=== PATIENT | female | born 1990 | race Caucasian/White ===

== ENCOUNTER 2024-02-12 04:05 | Day surgery (SDC) | payer OTHER ==
[2024-02-12] VITALS (238 sets, daily range): BP systolic 62–127; BP diastolic 13–92
--- NOTE | 2024-02-12 07:00 | NUR ---
PATIENT AMBULATORY TO ROOM. PATIENT IS ALERT AND ORIENTED X3. VS OBTAINED. CONSENTS OBTAINED. DR MARTINEZ NOTIFED. ORDERS RECEIVED. PATIENT MEDICATED PER MD ORDERS. ADMISSION ASSESSMENT COMPLETED AT THIS TIME. IV ESTABLISHED. WILL CONTINUE TO MONITOR.
[2024-02-12] MEDS ORDERED: diazePAM 5 MG/TAB PO PRN ×2 (07:30→08:30)
[2024-02-12] MEDS ORDERED: CYANOCOBALAMIN 500 MCG/TAB ( B12) PO PRN (07:30)
[2024-02-12] MEDS ORDERED: SCOPOLAMINE 1.5 MG DIS TD PRN (07:30)
[2024-02-12] MEDS ORDERED: cloNIDine HCL 0.1 MG/TAB PO PRN (07:30)
[2024-02-12] MEDS ORDERED: FAMOTIDINE 20 MG/TAB PO PRN (07:30)
[2024-02-12] MEDS ORDERED: PANTOPRAZOLE SODIUM Sesquihydr 40 MG/TAB PO PRN (07:30)
[2024-02-12] MEDS ORDERED: ALBUTEROL SULFATE 2.5 MG VIAL IN PRN (07:30)
[2024-02-12] MEDS ORDERED: LACTATED RINGER'S 1,000 ML IV PRN ×3 (07:30→19:00)
[2024-02-12] MEDS ORDERED: ASCORBIC ACID 4,000 MG in SODIUM CHLORIDE 0.9% 1,000 ML IV SCH (08:00)
[2024-02-12 08:03] LABS: BASO% 0.2 % (0-3); EOS% 2.6 % (0-8); HEMATOCRIT 37.9 % (37.0-47.0); HEMOGLOBIN 12.7 g/dl (12.0-16.0); IMMATURE GRANULOCYTES 0.2 % (0.0-5.0); LYMPH% 48.4 % (15-41); MEAN CELL VOLUME 96.4 fL CALC (80.0-100.0); MEAN CORPUSCULAR HGB 32.3 pG CALC (26.0-32.0); MEAN CORPUSCULAR HGB CONC 33.5 g/dL CAL (32.0-36.0); MONO% 6.1 % (2-13); NEUT# 2.6 thou/uL (2.00-7.15); NEUT% 42.5 % (42-76); RED BLOOD COUNT 3.93 mill/uL (4.20-5.60); RED CELL DISTRI WIDTH 12.7 % (11.5-15.5)
[2024-02-12] MEDS ORDERED: ZOFRAN4 MG/TAB PO (08:21)
[2024-02-12 08:38] LABS: ALBUMIN 3.7 g/dL (3.2-5.0); BILIRUBIN, TOTAL 0.2 mg/dL (0.02-1.3); CREATININE 0.9 mg/dL (0.5-1.0); TOTAL PROTEIN 6.1 g/dL (6.3-8.2)
[2024-02-12] MEDS ORDERED: SUCCINYLCHOLINE CHLORIDE 20 MG/ML 10ML VIAL IV PRN (09:00)
[2024-02-12] MEDS ORDERED: LIDOCAINE HCL 1% (10MG/ML) 100 MG/10 ML MDV VT PRN ×2 (09:00)
[2024-02-12] MEDS ORDERED: MIDAZOLAM HCL 2 MG/2 ML VIAL IV PRN (09:00)
[2024-02-12] MEDS ORDERED: PROPOFOL 10 MG/ML 100ML VIAL IV PRN (09:00)
[2024-02-12] MEDS ORDERED: cloNIDine HYDROCHLORIDE 100 MCG/ML 10 ML INJ IV PRN (09:00)
[2024-02-12] MEDS ORDERED: NALTREXONE HCL 50 MG/TAB VT PRN (09:00)
[2024-02-12] MEDS ORDERED: diazePAM 5 MG/TAB VT PRN (09:00)
[2024-02-12] MEDS ORDERED: MAGNESIUM SULFATE HEPTAHYDRATE 100 ML IV PRN (09:00)
[2024-02-12] MEDS ORDERED: PROPOFOL 100 ML IV PRN (09:00)
[2024-02-12] MEDS ORDERED: OCTREOTIDE ACETATE 100 MCG/VIAL SDV SC PRN (09:00)
[2024-02-12] MEDS ORDERED: DiphenhydrAMINE HCL 50 MG/ML SDV IV PRN (09:00)
[2024-02-12] MEDS ORDERED: LIDOCAINE HCL 1% (10MG/ML) 100 MG/10 ML MDV IV PRN (09:00)
[2024-02-12] MEDS ORDERED: DEXAMETHASONE SODIUM PHOSPHATE PF 10 MG/ML SDV IV PRN ×2 (09:00→19:00)
[2024-02-12] MEDS ORDERED: ROCURONIUM BROMIDE 10 MG/ML 5ML VIAL IV PRN (09:00)
[2024-02-12] MEDS ORDERED: ONDANSETRON HCl 4 MG/2 ML SDV IV PRN ×3 (09:00→19:00)
[2024-02-12] MEDS ORDERED: STERILE WATER FOR IRRIGATION 1,000 ML BTL IR PRN (09:00)
[2024-02-12] MEDS ORDERED: cloNIDine HCL 0.1 MG/TAB VT PRN (09:00)
[2024-02-12] MEDS ORDERED: THIAMINE HCL 100 MG/ML 2ML VIAL IV PRN (09:00)
[2024-02-12] MEDS ORDERED: POTASSIUM CHLORIDE 20 MEQ/100 ML BAG IV PRN (09:00)
--- NOTE | 2024-02-12 09:30 | NUR ---
rt at bedside for ekg
--- NOTE | 2024-02-12 10:15 | NUR ---
dr jean at bedside at this time
--- NOTE | 2024-02-12 11:20 | NUR ---
Induction Note Time out performed at 1120. Patient placed on monitors, Aron hugger, bilateral wrist restraints applied for ET tube protection. Versed 5mg given IV push at 1120 Tourniquet applied to LEFT arm Lidocaine 100mg given [id number] IV push followed by Rocoronium 10mg at 1122 IV push and held for 90 seconds. Propofol bolus of 120mg given at 1123 IV push. Succinylcholine 80mg given IV push at 1125. Smooth intubation with 7.5 ETT. Positive CO2. Positive Auscultation for air exchange. Patient placed on ventilator for spontaneous ventilation. Placed on Propofol IV drip at 1126. OG inserted. Positive air on auscultation. Positive gastric content. Stomach washed at this time.
--- NOTE | 2024-02-12 11:40 | NUR ---
OG close note Stomach washed at this time. Naltrexone 50 mg via OG tube. OG will be clamped for 45 minutes.
[2024-02-12] MEDS ORDERED: PHENYLEPHRINE HCL 10 MG in SODIUM CHLORIDE 0.9% 250 ML IV PRN (12:10)
--- NOTE | 2024-02-12 12:25 | NUR ---
OG open note OG open at this time. Gastric content draining into drainage bag. OG to drain for 45 minutes. Propofol will be titrated down based on patient.
--- NOTE | 2024-02-12 13:10 | NUR ---
OG close note Stomach washed at this time. Naltrexone 50 mg with Clonidine 0.1 mg via OG tube. OG will be clamped for 45 minutes.
--- NOTE | 2024-02-12 14:40 | NUR ---
OG close note Stomach washed at this time. Naltrexone 50 mg with Clonidine 0.1 mg via OG tube. OG will be clamped for 45 minutes.
--- NOTE | 2024-02-12 16:45 | NUR ---
OG close note Stomach washed at this time. Naltrexone 25 mg with Clonidine 0.1 mg via OG tube. OG will be clamped for 45 minutes.
[2024-02-12] MEDS ORDERED: KETOROLAC TROMETHAMINE 30 MG/ML SDV IV SCH (17:00)
[2024-02-12] MEDS ORDERED: LIDOCAINE HCL 1% (10MG/ML) 100 MG/10 ML MDV IV SCH (17:00)
[2024-02-12] MEDS ORDERED: ACETAMINOPHEN 1,000 MG/100 ML VIAL IV SCH (17:00)
--- NOTE | 2024-02-12 17:15 | NUR ---
OG open note OG open at this time. Gastric content draining into drainage bag. OG to drain for 15 minutes. Propofol will be titrated down based on patient.
--- NOTE | 2024-02-12 18:00 | NUR ---
Extubation note Closing medications given Benadryl 50mg IV push, Decadron 10mg IV push,Magnesium 4 grams IV, Zofran 8mg IV push, Octreotide 100mcg SC. Stomach washed out prior to extubation. Suctioned gastric content. OG removed. Patient extubated. Propofol Discontinued. Wrist restraints removed. Aron hugger Removed. See ANR Moderate sedate recovery record for further notes and assessment.
[2024-02-12] MEDS ORDERED: NALTREXONE50 MG PO (18:27)
[2024-02-12] MEDS ORDERED: CLONIDINE0.1 MG PO (18:27)
[2024-02-12] MEDS ORDERED: KLONOPIN2 MG PO (18:28)
--- NOTE | 2024-02-12 18:40 | NUR ---
patient to [facility] via bed. patient resting comfortably. vss. phoned mother provided update.
[2024-02-12] MEDS ORDERED: PROMETHAZINE HCL 25 MG in SODIUM CHLORIDE 0.9% 50 ML IV PRN (19:00)
[2024-02-12] MEDS ORDERED: KETOROLAC TROMETHAMINE 30 MG/ML SDV IV PRN (19:00)
[2024-02-12] MEDS ORDERED: ACETAMINOPHEN 1,000 MG/100 ML VIAL IV PRN (19:00)
[2024-02-12] MEDS ORDERED: PROMETHAZINE HCL 12.5 MG in SODIUM CHLORIDE 0.9% 50 ML IV PRN (19:00)
[2024-02-12] MEDS ORDERED: ACETAMINOPHEN 500 MG TAB PO PRN (19:00)
[2024-02-12] MEDS ORDERED: LORazepam 2 MG/ML IV PRN ×2 (19:00)
[2024-02-12] MEDS ORDERED: HALOPERIDOL LACTATE 5 MG/ML SDV IV PRN (19:00)
--- NOTE | 2024-02-12 20:00 | NUR ---
RECEIVED REPORT FROM ANR NURSE. PT NOTED LAYING IN BED, SUPINE ON RM AIR. PT IS CONTINUING TO SIT UP IN BED AND THEN LAY BACK DOWN. PT NOT GIVING ANY VERBAL REPONSES AT THIS TIME OR OPEN EYES BUT DOES FOLLOW COMMANDS WHEN REDIRECTED TO LAY BACK DOWN AND REST. PT IS BECOMING SLIGHTLY AGITATED HOWEVER, TOSSING AND TURNING IN BED. NOT ABLE TO LAY STILL. WILL FOLLOW UP WITH MEDICATION PER EMAR FRO AGITATION. NURSING ASSESSMENT COMPLETED. IV SITE APPEARS HEALTHY AND INTACT WITH FLUIDS RUNNING PER EMAR. BED ALARM ON AND SAFETY PRECAUTIONS IN PLACE.
[2024-02-12] MEDS ORDERED: PATIENT' OWN MED CONTROLLED 1 EA DOSE IV PRN (21:00)
--- NOTE | 2024-02-12 21:24 | NUR ---
PT BED ALARM GOING OFF, DIRECTOR OF PERSONNEL AND BELT KNIFE FEEDER ENTERED ROOMA ND PT WAS SITTING UP ON SIDE OF BED BETWEEN GAURD RAIL AND LOWER BED FRAME. PT IMMEDIATLY LAID BACK DOWN UPON STAFF ENTRY. ASKED PT IF THEY NEEDED TO USE THE BATHROOM, PT REPLIED YES. DIRECTOR OF PERSONNEL AND BELT KNIFE FEEDER ASSISTED WITH STAND AND PIVOTING PT ONTO BSC, PT VOIDED WITHOUT DIFFICULTY. ASSISTED BACK INTO BED. PT WAS UNABLE TO KEEP EYES OPEN AND VERBAL RESPONSES ARE MINIMAL AT THIS TIME. GAIT WAS UNSTEADY AND REQUIRED X2 ASSIST. PT LAYING SUPINE IN BED, FLUIDS RUNNING PER EMAR. BED ALARM ON AND SAFETY PRECAUTIONS IN PLACE. NO S/S OF DISTRESS.
--- NOTE | 2024-02-12 22:04 | NUR ---
PT HAD AN EPISODE OF VOMITTING, ABOUT 100CC OF GREEN/YELLOW OUTPUT. ADMINSITERED MEDICATION FOR VOMITTING PER EMAR. PT LAYING IN BED ON LEFT SIDE, RESTING AT THIS TIME. BED ALARM ON AND SAFETY PRECAUTIONS IN PLACE.
[2024-02-12] MEDS ORDERED: clonazePAM 1 MG/TAB PO PRN (23:00)
[2024-02-12] MEDS ORDERED: cloNIDine HCL 0.1 MG/TAB PO SCH (23:00)
--- NOTE | 2024-02-13 | NUR ---
PT LAYING IN BED ON LEFT SIDE, SLEEPING. NO S/S OF DISTRESS AT THIS TIME. BED ALARM ON AND SAFETY PRECAUTIONS IN PLACE.
[2024-02-13] MEDS ORDERED: clonazePAM 1 MG/TAB PO PRN ×2 (04:00→08:00)
[2024-02-13] MEDS ORDERED: NALTREXONE HCL 50 MG/TAB PO SCH ×2 (04:00→08:30)
[2024-02-13] MEDS ORDERED: cloNIDine HCL 0.1 MG/TAB PO PRN (04:00)
[2024-02-13 04:02] VITALS: BP 93/56
--- NOTE | 2024-02-13 04:30 | NUR ---
PT REQUESTING TO USE BATHROOM. TELEVISION ANALYZER AND MOLD SPRAYER ASSISTED PT TO BSC. PT GAIT WAS STEADY AND ABLE TO KEEP EYES OPEN. ASSISTED BACK INTO BED. PT BP AND HR BELOW PARAMETERS FOR PRN 0400 MEDICATIONS. ONLY SCHEDULED MED GIVEN PER EMAR. PT TOLERATED WELL. DENIES ANY N/V/P. PT WAS REQUESTING PERSONAL ITEMS SHE STATED "I CAME IN WITH" INFORMED PT ON ALL BELONGINGS PLACE IN LOCKER DOWNSTAIRS AND PROTOCOL FOR RETURN OF BELONGINGS BEFORE D/C. NO S/S OF DISTRESS. BED ALARM ON AND SAFETY PRECAUTIONS IN PLACE.
[2024-02-13 05:00] LABS: HEMATOCRIT 38.4 % (37.0-47.0); HEMOGLOBIN 13.4 g/dl (12.0-16.0); IMMATURE GRANULOCYTES 0.3 % (0.0-5.0); LYMPH% 13.4 % (15-41); MEAN CELL VOLUME 95.5 fL CALC (80.0-100.0); MEAN CORPUSCULAR HGB 33.3 pG CALC (26.0-32.0); MEAN CORPUSCULAR HGB CONC 34.9 g/dL CAL (32.0-36.0); MONO% 3.4 % (2-13); NEUT# 7.78 thou/uL (2.00-7.15); NEUT% 82.9 % (42-76); RED BLOOD COUNT 4.02 mill/uL (4.20-5.60); RED CELL DISTRI WIDTH 12.3 % (11.5-15.5)
[2024-02-13 05:09] LABS: ALBUMIN 3.6 g/dL (3.2-5.0); CREATININE 0.8 mg/dL (0.5-1.0); MAGNESIUM 2.2 mg/dL (1.6-2.3); POTASSIUM 3.7 mmol/l (3.5-5.1)
[2024-02-13 05:20] LABS: BILIRUBIN, TOTAL 0.6 mg/dL (0.02-1.3)
[2024-02-13] MEDS ORDERED: ACETAMINOPHEN 325 MG/TAB PO SCH (08:00)
[2024-02-13] MEDS ORDERED: PANTOPRAZOLE SODIUM Sesquihydr 40 MG/TAB PO SCH (08:00)
[2024-02-13] MEDS ORDERED: cloNIDine HCL 0.1 MG/TAB PO SCH (08:00)
[2024-02-13 08:30] VITALS: BP 97/57
[2024-02-13] MEDS ORDERED: POTASSIUM CHLORIDE 20 MEQ/TAB PO SCH (08:30)
--- NOTE | 2024-02-13 08:30 | NUR ---
patient a/o x3; room air; breathing unlabored and even; denied any pain; denied any n/d/v at this time; assited patient to bathroom with stand by assit; reviewed patient medications and its purpose with patinet; potassium was under program guildline, and mag was in range, informed Dr. Valenzuela of patient labs and status of patient; encouraged patient to eat breakfast; patient did have some sneezing, informed Dr. Valenzuela, provider, medicated per EMAR;call light within reach, verbalized understanding on how to use, personal items in ANR locker, POC was reviwed with patient; bed in lowest postion; bed alarm activated
[2024-02-13] MEDS ORDERED: Cholecalciferol 2,000 UNIT/TAB PO PRN (09:00)
[2024-02-13] MEDS ORDERED: MAGNESIUM OXIDE 400 MG/TAB PO PRN (09:00)
[2024-02-13] MEDS ORDERED: ACETAMINOPHEN 500 MG TAB PO PRN (09:00)
--- NOTE | 2024-02-13 12:05 | NUR ---
patient asleep in bed; room air; breathing unlabored and even; no visual s/s of distress at this time; iv site clean and intact running with LR @100; no issues at thistime; encouraged patient to try to eat lunch; refused at this time; call light within reach, bed in lowest postion ;bed alarm actiavted
--- NOTE | 2024-02-13 15:51 | NUR ---
IV site discontinued, cath intact. No edema , no redness, voices no discomfort. Discharge instructions given. Patient verbalizes understanding of same. Discharged in stable condition via Ambulatory to Home with family. All belongings sent with pt.
[2024-02-15] MEDS ORDERED: LACTATED RINGER'S 1,000 ML IV PRN (13:15)
[2024-02-15] MEDS ORDERED: KETOROLAC TROMETHAMINE 30 MG/ML SDV IV PRN (13:15)
[2024-02-15] MEDS ORDERED: ONDANSETRON HCl 4 MG/2 ML SDV IV PRN (13:15)
== END 2024-02-13 15:57 | disposition home or self-care (01) | DRG 897 ==
LOC: ANR 04:05 → MS2 04:05 → ANR 08:00 → MS2 17:49 → ANR 02-13 15:57
PROVIDERS: ATTEND Anesthesiology
DX: F11.20 Opioid dependence, uncomplicated (principal)
CPT/HCPCS: J0131; J1100; J2060; J2354; J3475; J3490